=== PATIENT | male | born 1955 | race African-American/Black ===

== ENCOUNTER 2020-05-31 16:57 | Emergency (ER) | payer MEDICARE ==
[~2020-05-31] VITALS: Ht 172.7 cm; Wt 89.4 kg
[~2020-05-31 16:57] MED LIST: BYSTOLIC10 MG PO; CELEXA; CINNAMON; CRESTOR10 MG PO; FISHOIL; GLUCOPHAGE1000 MG PO; HYDROXYZINE HCL25 M1 PO; JANUVIA 50 MG T50 M1 PO; MEDROLDOSEPACK PO; MICARDIS HCT 81 EAC1 PO; PHENTERMINE H37.5 MG PO
[2020-05-31] MEDS ORDERED: GLYBURIDE 5 MG T5 M1 PO (17:12)
[2020-05-31] MEDS ORDERED: FLOMAX0.4 MG PO (17:13)
[2020-05-31] MEDS ORDERED: LIPITOR40 MG PO (17:13)
[2020-05-31] MEDS ORDERED: NORCO 5-325 TA1 EAC2 PO (18:58)
[2020-05-31 20:15] VITALS: BP 128/72
== END 2020-05-31 20:15 | disposition home or self-care (01) ==
LOC: M.ERS 16:57
DX: S46.812A Strain of other muscles, fascia and tendons at shoulder and upper arm level, left arm, initial encounter (principal); I10 Essential (primary) hypertension; K21.9 Gastro-esophageal reflux disease without esophagitis; E11.9 Type 2 diabetes mellitus without complications; V49.49XA Driver injured in collision with other motor vehicles in traffic accident, initial encounter; Y93.89 Activity, other specified; Y92.89 Other specified places as the place of occurrence of the external cause; Y99.8 Other external cause status